=== PATIENT | male | born 1995 | race Caucasian/White ===

== ENCOUNTER 2022-10-05 17:05 | Outpatient (CLI) | payer MEDICAID, SELFPAY ==
--- NOTE | 2022-10-05 15:45 | DI.RAD_ITS ---
Exam(s) XR RIBS RT W PA LAT CHEST EXAM: XR RIBS RT W PA LAT CHEST CLINICAL HISTORY: Rt rib pain, pleurisy, R07.81, pleurodynia, R09.1 TECHNIQUE: 2D digital imaging was performed.Six images were obtained. COMPARISON: No exams were available for comparison FINDINGS: MEDIASTINUM: Normal. HEART: Normal. PULMONARY VASCULATURE: Normal. LUNGS: Clear. PLEURAL SPACE: No pleural effusion or pneumothorax. BONE:Normal. RIGHT RIBS: Normal. OTHER FINDINGS:Normal. IMPRESSION: 1. No acute pulmonary findings. 2. Unremarkable right ribs. DATA REPOSITORY: RADIATION DOSE DELIVERED:
== END 2022-10-05 17:25 ==
LOC: DI 17:06
PROVIDERS: PCP Nurse Practitioner; Visit Provider Student in an Organized Health Care Education/Training Program
DX: R07.81 Pleurodynia (principal); R09.1 Pleurisy
CPT/HCPCS: 71046; 71100